=== PATIENT | female | born 1990 | race Caucasian/White ===

== ENCOUNTER 2022-05-07 20:29 | Emergency (ER) | payer SELFPAY ==
[2022-05-07 20:42] VITALS: BP 118/52; PULSE 70; RESP 18; TEMP 98.3; BMI 33.7
[2022-05-07] MEDS ORDERED: MECLIZINE HCL 25 MG TABLET (FP) PO ONE (22:44)
[2022-05-07] MEDS ORDERED: MECLIZINE HCL 25 MG TABLET (FP) ONE (22:47)
== END 2022-05-08 00:05 | disposition home or self-care (01) ==
LOC: JER 20:29
DX: R42 Dizziness and giddiness (principal)
CPT/HCPCS: 0241U-QW; 99283-25